=== PATIENT | male | born 2000 | race Caucasian/White ===

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

== ENCOUNTER → 2018-07-31 | Outpatient (REF) | payer OTHER ==
[~2018-07-31] MED LIST changes: +CRAN250C2 PO; +OMEP10CASR PO
[2018-07-31 16:46] LABS: HEMATOCRIT 45.4 % (42.0-52.0); HEMOGLOBIN 15.1 g/dl (13.5-17.5); MEAN CORPUSCULAR HEMOGLOBIN 28.9 pg (27.0-33.0); MEAN CORPUSCULAR HGB CONC 33.3 g/dl (32.0-36.5); PLATELET COUNT, AUTOMATED 270 10^3/uL (150-450); RED BLOOD COUNT 5.22 10^6/uL (4.30-6.10); WHITE BLOOD COUNT 4.8 10^3/uL (4.0-10.0)
[2018-07-31 17:09] LABS: ALBUMIN 4.5 GM/DL (3.2-5.2); ALT/SGPT 16 U/L (12-78); BILIRUBIN,TOTAL 0.8 MG/DL (0.2-1.0); BLOOD UREA NITROGEN 13 MG/DL (7-18); CALCIUM LEVEL 9.1 MG/DL (8.5-10.1); CARBON DIOXIDE LEVEL 28 MEQ/L (21-32); CHLORIDE LEVEL 105 MEQ/L (98-107); CREATININE FOR GFR 1.17 MG/DL (0.70-1.30); GLUCOSE, FASTING 73 MG/DL (70-100); POTASSIUM SERUM 4.3 MEQ/L (3.5-5.1); SODIUM LEVEL 140 MEQ/L (136-145); TOTAL PROTEIN 7.5 GM/DL (6.4-8.2)
[2018-07-31 17:11] LABS: ERYTHROCYTE SEDIMENTATION RATE 2 mm/hr (0-15)
== END ==
LOC: M LABDRAW1 16:00
PROVIDERS: ATTEND Specialist
DX: R63.4 Abnormal weight loss (principal)

== ENCOUNTER → 2019-10-08 | Outpatient (CLI) | payer BC ==
--- NOTE | 2019-10-08 16:03 | REP ---
REASON: History of neurogenic bladder. Latest prior for comparison is 03/01/2012, which showed an atrophic right kidney and evidence of a cystolith. The right kidney measures 8.8 x 4.8 x 4.1 cm. There is poor cortical medullary differentiation as seen on the prior exam. There is no hydronephrosis, cystic or solid masses. The left kidney measures 10.1 x 5.4 x 6.2 cm. The renal cortical echoes are within normal limits. Cortical medullary differentiation is preserved. There is no cystic or solid masses. Images of the urinary bladder were obtained solely for the purpose of accessing for urojet phenomena since no urinary bladder ultrasonography was ordered or performed. I have reviewed the order which indicates renal ultrasound only. Echogenic areas are seen within the urinary bladder. Urojet phenomena could not be confirmed. IMPRESSION: 1. No change in the appearance of the atrophic right kidney as described above. 2. No evidence of acute renal abnormality when compared to the 03/11/2012 exam. 3. If urinary bladder ultrasonography is clinically desired, then it should be additionally ordered.
== END ==
LOC: M WHC 11:59
PROVIDERS: ATTEND Urology
DX: N31.9 Neuromuscular dysfunction of bladder, unspecified (principal)

== ENCOUNTER 2020-01-23 04:27 | Emergency (ER) | payer BC, OTHER ==
[~2020-01-23] VITALS: Ht 162.6 cm; Wt 53.4 kg
--- NOTE | 2020-01-23 05:48 | REPVR ---
PROCEDURE INFORMATION: Exam: XR Left Hand Exam date and time: 01/23/2020 5:12 AM Age: 19 years old Clinical indication: Pain; Hand; Left; Patient HX: PT punched wall; Additional info: Injury TECHNIQUE: Imaging protocol: XR Left hand. Views: 3 or more views. COMPARISON: No relevant prior studies available. FINDINGS: Bones/joints: There is a dorsal dislocation of the 5th metacarpal at the carpometacarpal joint. There is palmar angulation of the 5th metacarpal. No definite fracture is identified, but there is some overlap of the bones and reassessment on post reduction films is recommended. Soft tissues: There is a suggestion of soft tissue swelling on the ulnar side of the hand. IMPRESSION: Dorsal dislocation of the 5th metacarpal at the carpometacarpal joint. No definite fracture identified. Electronically signed by: Katelin Duarte On 01/23/2020 05:48:12 AM
[2020-01-23] MEDS ORDERED: NS 1,000 ML IV SCH (06:22)
[2020-01-23] MEDS ORDERED: propofoL 200 MG/20 ML VIAL IV PRN (06:30)
[2020-01-23] MEDS ORDERED: ONDANSETRON 4MG/2ML VIAL As Ordered ONE (06:57)
[2020-01-23 07:07] VITALS: O2SAT 100
[2020-01-23] MEDS ORDERED: ONDANSETRON 4MG/2ML VIAL IV ONE (07:15)
[2020-01-23 08:02] VITALS: BP 120/70
--- NOTE | 2020-01-25 16:13 | ER ---
DATE OF SERVICE: 01/23/2020 CHIEF COMPLAINT: Left 5th metacarpal dorsal dislocation. HISTORY OF PRESENT ILLNESS: This 27-year-old man punched a wall this morning at 2 a.m. He has never had any previous hand problems or difficulties. He had immediate pain and deformity. He is right hand dominant. I was called to assess the patient by Dr. Mann, the emergency department physician on-call at [facility]. PAST MEDICAL HISTORY: Complex and includes spina bifida, clubfoot, imperforate anus, many other things, he states. SURGICAL HISTORY: Spine surgery. SOCIAL HISTORY: Works at [employer] and goes to school there. 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 He does not smoke. He does drink alcohol. He was drinking at [employer] when this happened. No IV drug use. ALLERGIES: NO KNOWN DRUG ALLERGIES OR LATEX ALLERGY. MEDICATIONS: None. PHYSICAL EXAMINATION: 27-year-old man. He is alert and oriented x3. He appears well. Obvious deformity of his left hand. There is a dorsal prominence overlying 5th metacarpal base. Normal sensation and motor function throughout the hand. Hand is warm and well perfused. Sensation MRU and AIN/ZARATE. No crossing or scissoring of the digits but quite a bit of pain to the lateral side of the hand, strong radial pulse, no pain in the wrist, forearms are soft as is the hand. Digit is obviously foreshortened. Radiographs were reviewed AP, lateral and oblique left hand. This shows dorsal dislocation of base of 5th metacarpal at the carpometacarpal joint. No other abnormalities. No obvious fracture. Phalanges appear normal. ASSESSMENT AND PLAN: 27-year-old man has somewhat uncommon injury. He has dorsal dislocation of the base of the 5th metacarpal at the CMC joint. Recommend closed reduction and casting per my review of the literature. Occasionally this is still unstable afterwards. After discussion of the pros and cons, risks and benefits he signed consent form for Dr. Mann for closed reduction and casting under conscious sedation. Did perform that today. It went back in easily with longitudinal traction, direct manipulation of the dislocation site and I placed ulnar gutter splint and advised him to follow up in one weeks time with absolutely no hunting and he was requested to do that immediately before and after the sedation. He can wiggle his fingers and range of motion of the elbow but absolutely no heavy lifting or gripping of the hand. PROCEDURE NOTE: We talked about pros and cons, risks and benefits of closed reduction and splinting in the emergency department. The risks included but not limited to pain, stiffness, weakness, damage to surrounding structures, neurovascular injury, cast irritation, cast sun, failure to achieve and maintain closed reduction as well as anesthetic complications and risks. He wished to go ahead. I performed a time out. Conscious sedation was achieved with Propofol by Dr. Mann. I performed longitudinal traction with countertraction on the upper humerus, direct manipulation of dislocation site. This went back in easily with palpable clunk. No difficulties. Checked mini C-arm AP, lateral and oblique radiographs and dislocation appeared properly reduced and no obvious fracture. Splinted using ulnar gutter plaster of Unique splint with wrist in slight extension and direct molding on both sides of the dislocation site, especially dorsally. The splint was allowed to slightly harden and repeat the radiographs taken in splint that showed the dislocation to be properly reduced. He was neurovascularly intact afterwards with normal sensation, able to wiggle fingers and capillary refill under 3 seconds. He tolerated this procedure well. TOÑITO
--- NOTE | 2020-01-26 12:48 | REP ---
C-ARM VIEWS LEFT HAND HISTORY: Dislocation. FINDINGS: Four C-arm views of the left hand performed following reduction of posterior dislocation of the base of the fifth metacarpal. The osseous structures appear well aligned. A splint is seen on the final lateral view. [place]O
== END 2020-01-23 08:00 | disposition home or self-care (01) ==
LOC: M ED 04:27
DX: S63.055A Dislocation of other carpometacarpal joint of left hand, initial encounter (principal); W22.10XA Striking against or struck by unspecified automobile airbag, initial encounter; Y92.099 Unspecified place in other non-institutional residence as the place of occurrence of the external cause; Y93.89 Activity, other specified; Y99.9 Unspecified external cause status; Q05.9 Spina bifida, unspecified
CPT/HCPCS: 26670; 73120; 73130; 93041; 94760; 99285; J2405

== ENCOUNTER → 2020-10-23 | Outpatient (CLI) | payer BC, OTHER ==
--- NOTE | 2020-10-23 18:10 | REP ---
INDICATION: NEUROGENIC BLADDER COMPARISON: 10/08/2019 TECHNIQUE: Real time light scale ultrasound examination using curved array transducer. FINDINGS: The right kidney is atrophic and isoechoic measuring 6.2 x 2.5 x 2.1 cm without hydronephrosis, obvious nephrolithiasis, cystic or mass lesion. Left kidney measures 11.3 x 5.2 x 5.4 cm and demonstrates mild hydronephrosis without nephrolithiasis, cystic or renal mass lesion. Bladder demonstrates irregular wall thickening measuring between 4.9 and 10.0 mm with mobile debris. No intraluminal mass lesion identified. A left ureteral jet is appreciated. Prevoid bladder measures 11.2 x 7.7 x 6.3 cm (355 cc). Postvoid bladder measures 9.5 x 7.8 x 4.1 cm (198 cc). Postvoid residual equals 56%. IMPRESSION: 1. Atrophic presumed nonfunctioning right kidney without ureteral jet. 2. Left kidney demonstrates mild hydronephrosis which may be chronic as a normal left ureteral jet is identified within the bladder. 3. Bladder demonstrates irregular wall thickening and debris along with abnormally elevated postvoid residual volume all of which is consistent with the given history of neurogenic bladder. <Electronically signed by Richard Smith > 10/23/20 [id number]
--- NOTE | 2020-10-23 18:13 | REP ---
INDICATION: NEUROGENIC BLADDER COMPARISON: 06/25/2010 TECHNIQUE: Real time B-mode ultrasound examination using curved array transducer. FINDINGS: Bladder demonstrates irregular wall thickening measuring between 4.9 and 10.0 mm along with floating debris. No intraluminal bladder mass identified. A left ureteral jet was noted. Prevoid bladder measures 11.2 x 7.7 x 6.3 cm (355 cc). Postvoid bladder measures 9.5 x 7.8 x 4.1 cm (198 cc). Postvoid residual: 56% IMPRESSION: 1. Above findings consistent with the given history of neurogenic bladder. <Electronically signed by Richard Smith > 10/23/20 [id number]
== END ==
LOC: M RAD 16:30
PROVIDERS: ATTEND Urology
DX: N31.9 Neuromuscular dysfunction of bladder, unspecified (principal); N26.1 Atrophy of kidney (terminal); N13.30 Unspecified hydronephrosis

== ENCOUNTER → 2020-10-31 | Outpatient (CLI) | payer BC, OTHER ==
[2020-10-31 13:27] LABS: HEMATOCRIT 44.6 % (42.0-52.0); MEAN CORPUSCULAR HEMOGLOBIN 30.5 pg (27.0-33.0); MEAN CORPUSCULAR HGB CONC 33.6 g/dl (32.0-36.5); MEAN CORPUSCULAR VOLUME 90.7 fl (80.0-96.0); PLATELET COUNT, AUTOMATED 270 10^3/uL (150-450); RED BLOOD COUNT 4.92 10^6/uL (4.30-6.10); WHITE BLOOD COUNT 5.5 10^3/uL (4.0-10.0)
[2020-10-31 13:48] LABS: BLOOD UREA NITROGEN 17 MG/DL (7-18); CALCIUM LEVEL 9.1 MG/DL (8.5-10.1); CARBON DIOXIDE LEVEL 29 MEQ/L (21-32); CHLORIDE LEVEL 103 MEQ/L (98-107); CREATININE FOR GFR 1.18 MG/DL (0.70-1.30); GLOMERULAR FILTRATION RATE > 60.0 (>60); GLUCOSE, FASTING 63 MG/DL (70-100); POTASSIUM SERUM 4.7 MEQ/L (3.5-5.1); SODIUM LEVEL 136 MEQ/L (136-145)
== END ==
LOC: M PLALAB 09:54
PROVIDERS: ATTEND Urology
DX: N31.9 Neuromuscular dysfunction of bladder, unspecified (principal)

== ENCOUNTER → 2021-03-29 | Outpatient (CLI) | payer BC, OTHER ==
[~2021-03-29] MED LIST changes: +E-Z-GAS II EFFERVESCENT PACKET (SODIUM BICARB./CITRIC ACID/SIMETHICONE) As Ordered ONE; +E-Z-HD 98% w/w 340GM SUSP BTL As Ordered ONE; +E-Z-PAQUE 96% w/w SUSP 176GM BTL As Ordered ONE
== END ==
LOC: M RAD 09:40
PROVIDERS: ATTEND Internal Medicine Gastroenterology
DX: R10.84 Generalized abdominal pain (principal); R14.0 Abdominal distension (gaseous); K59.00 Constipation, unspecified

== ENCOUNTER → 2023-03-10 | Outpatient (CLI) | payer BC, OTHER ==
[~2023-03-10] MED LIST changes: -E-Z-GAS II EFFERVESCENT PACKET (SODIUM BICARB./CITRIC ACID/SIMETHICONE) As Ordered ONE; -E-Z-HD 98% w/w 340GM SUSP BTL As Ordered ONE; -E-Z-PAQUE 96% w/w SUSP 176GM BTL As Ordered ONE
[2023-03-10 13:10] LABS: BLOOD UREA NITROGEN 15 MG/DL (9-23); CALCIUM LEVEL 9.3 MG/DL (8.5-10.1); CARBON DIOXIDE LEVEL 29 MMOL/L (20-31); CHLORIDE LEVEL 105 MMOL/L (98-107); CREATININE FOR GFR 1.06 MG/DL (0.70-1.30); GLOMERULAR FILTRATION RATE > 60.0 (>60); GLUCOSE, FASTING 84 MG/DL (60-100); POTASSIUM SERUM 4.8 MMOL/L (3.5-5.1); SODIUM LEVEL 142 MMOL/L (136-145)
== END ==
LOC: M LAB 11:43
PROVIDERS: ATTEND Student in an Organized Health Care Education/Training Program
DX: N18.2 Chronic kidney disease, stage 2 (mild) (principal); N31.9 Neuromuscular dysfunction of bladder, unspecified

== ENCOUNTER → 2024-05-13 | Outpatient (REF) | payer BC, OTHER | LOC: M LAB REF 21:24 | PROVIDERS: ATTEND Physician Assistant | DX: B34.9 Viral infection, unspecified (principal) ==